=== PATIENT | female | born 1985 | race African-American/Black ===

== ENCOUNTER 2016-05-27 21:52 | Inpatient (IN) ==
[2016-05-27] MEDS ORDERED: MORPHINE 2 MG/1 ML SYRINGE IV STA (22:11)
[2016-05-27] MEDS ORDERED: SODIUM CHLORIDE 0.9% 500 ML IV STA (22:11)
[2016-05-27] MEDS ORDERED: ONDANSETRON 4 MG/2 ML VIAL IV STA (22:11)
[2016-05-27] MEDS ORDERED: ONDANSETRON 4 MG/2 ML VIAL ONE (22:44)
[2016-05-27] MEDS ORDERED: MORPHINE 2 MG/1 ML SYRINGE ONE (22:45)
[2016-05-27 22:49] LABS: Albumin 3.5 G/DL (3.4-5.0); Bilirubin,Total 1.3 MG/DL (0.2-1.0); Calcium 9.2 MG/DL (8.5-10.1); Osmolality,Calculated 284.7 MOS/KG (273-304); Potassium 3.7 MMOL/L (3.5-5.1); Total Protein 7.1 G/DL (6.4-8.3)
--- NOTE | 2016-05-27 22:54 | Ultrasound Report ---
Gallbladder ultrasound. Indication: Biliary colic. The liver is normal in size. No definite focal liver lesions. Echogenicities within the parenchyma appear to be associated with the portal triads. The gallbladder is filled with stones. There is gallbladder wall thickening at 6.5 mm. The patient is tender over the gallbladder. The pancreas and right kidney present a normal appearance. The common duct measures 7.4 mm, borderline dilated. Impression: Cholelithiasis and cholecystitis. Borderline prominence of the common bile duct. PROCEDURE INTERPRETED AT [facility] DEPARTMENT OF RADIOLOGY Final Report Signed by: Dr. Tamia Ventura
[2016-05-27 23:09] LABS: Basophils % 0.3 % (0.0-0.8); Eosinophils % 0.3 % (0.00-10.9); Hematocrit 40.3 VOL% (35.7-47.0); Hemoglobin 12.7 GM/DL (12.0-16.0); Immature Granulocytes % 0.2 %; Immature Granulocytes Absolute 0.01 #; Lymphocytes # 1.4 10*3/uL (1.4-4.0); Lymphocytes % 24.3 % (21.3-54.2); Mean Corpuscular HGB Conc 31.5 GM/DL (32-36); Mean Corpuscular Hemoglobin 26 PG (27-34); Mean Corpuscular Volume 83.8 FL (87-102); Mean Platelet Volume 11.2 FL (9.6-12.0); Monocytes # 0.7 10*3/uL (0.11-0.8); Monocytes % 12.1 % (1.7-12.7); Neutrophils # 3.6 10*3/uL (1.4-7.4); Neutrophils % 62.8 % (38.7-73.9); Platelet Count 278 T/CUMM (130-400); Red Blood Count 4.81 MC/CUMM (3.8-5.5); Red Cell Distribution Width 14.4 % (9.3-17.3); White Blood Count 5.7 T/CUMM (4-12)
[2016-05-27 23:31] LABS: Amorphous Crystals,Urine Occasional /HPF (Few); Apearance,Urine CLOUDY (Clear); Bilirubin,Urine Negative (Negative); Blood, Urine Negative (Negative); Glucose,Urine (UA) Negative (Negative); Ketones,Urine Negative (Negative); Nitrite,Urine Negative (Negative); Protein,Urine Negative; Squamous Epithelial Cell,Urine Occasional /HPF (0-10); Urine Color Yellow (Yellow); Urine Specific Gravity 1.011 (1.001-1.035)
[2016-05-27 23:35] LABS: Lactic Acid 0.6 MMOL/L (0.4-2.0)
[2016-05-27] MEDS ORDERED: DEXTROSE 5% LACTATED RINGERS 1,000 ML IV SCH (23:45)
[2016-05-27] MEDS ORDERED: MORPHINE 2 MG/1 ML SYRINGE IV PRN (23:53)
[2016-05-27] MEDS ORDERED: ONDANSETRON 4 MG/2 ML VIAL IV PRN (23:53)
[2016-05-27] MEDS ORDERED: ACETAMINOPHEN 325 MG TABLET PO PRN (23:53)
[2016-05-27] MEDS ORDERED: HYDROmorphone 2 MG/1 ML VIAL IV PRN (23:53)
--- NOTE | 2016-05-27 23:53 | Emergency Department Note ---
Kandace King Emily, am scribing for, and in the presence of, Hector Wilson MD 22: 13. Steve King Robert M, MD, personally performed the services described in this documentation, ascribed by Sara Jeronimo in my presence, and it is both accurate and complete 351 . Arrival - Arrival Chief Complaint: Abdominal / Flank Pain Stated Complaint: upper abd pain ED Nursing Triage Note: c/o epigastric ABD pain that she can feel in her right shoulder that started last night. last bm today and was normal. states she was nauseated earlier today. hx GERD. takes zantac. Mode of Arrival: Ambulatory Limitations: No Limitations Source: Patient - History of Present Illness HPI Narrative: Pt is a 30 y/o female who came to ED with c/o RUQ pain that started last night. Pt has associated sx of nausea but denies vomiting. She reports eating food makes her abdomen pain worse. Pt took Zantac with no relief. Pt's last nml BM was today. PMHx of HTN and GERD. Onset (ago): day(s) Consistency: constant Severity: mild, moderate Severity scale (1-10): 4 Quality: aching Date of Last Menstrual Period: "2 weeks ago" Allergies/Adverse Reactions: Allergies Allergy/AdvReac Type Severity Reaction Status Date / Time No Known Allergies Allergy Unverified 05/27/16 22:01 Home Medications: Home Medications Medication Instructions Recorded Confirmed Type Ranitidine Tab [Zantac Tab] 150 mg PO BID 05/27/16 05/27/16 History Triamterene/Hctz 37.5-25 Tab 1 tablet PO DAILY 05/27/16 05/27/16 History [Maxzide 37.5-25] amLODIPine [Norvasc] 10 mg PO DAILY 05/27/16 05/27/16 History buPROPion XL [Wellbutrin Xl] 300 mg PO DAILY 05/27/16 05/27/16 History Review of System - Review of System 12 point system: reviewed and no additional remarkable complaints except as stated - Review of System Constitutional: Absent: chills, fever Respiratory: Absent: cough, respiratory distress Cardiovascular: Absent: chest pain Gastrointestinal: Present: abdominal pain, nausea. Absent: vomiting, diarrhea, constipation Musculoskeletal: Absent: arm pain, back pain, leg pain, neck pain Skin: Absent: rash Neurological: Absent: headache Medical,Surgical,& Family Hx - Medical History Cardio: History of: Hypertension Gastrointestinal: History of: GERD - Family History Family History: Reports;: Family Cancer (maternal breast CA), Family Diabetes ( paternal), Family Hypertension (paternal, maternal), Family Stroke (paternal) - Social History Smoking Status: Never smoker Frequency of Alcohol Use: None Type of Drug Use: None Exam Vital Signs: Vital Signs Temperature 97.4 F L 05/27/16 21:55 Pulse Rate 79 05/27/16 21:55 Respiratory Rate 16 05/27/16 21:55 Blood Pressure 155/105 05/27/16 21:55 O2 Sat by Pulse Oximetry 99 05/27/16 21:55 - General General appearance: alert, in no apparent distress - Head Head exam: Present: atraumatic, normocephalic - Eye Eye exam: Present: PERRL, EOMI - ENT ENT exam: Present: mucous membranes moist. Absent: mucous membranes dry - Neck Neck exam: Present: full ROM. Absent: tenderness - Chest Chest inspection: Present: symmetric chest wall rise. Absent: tenderness - Respiratory Respiratory exam: Present: normal lung sounds bilaterally. Absent: respiratory distress - Cardiovascular Cardiovascular exam: Present: regular rate, normal rhythm, normal heart sounds - Abdominal Exam Abdominal exam: Present: soft, tenderness (RUQ). Absent: distention, guarding, rebound - Extremities Exam Extremities exam: Present: full ROM. Absent: tenderness, pedal edema - Back Exam Back exam: Present: full ROM. Absent: tenderness - Neurological Exam Neurological exam: Present: alert, oriented X3, CN II-XII intact. Absent: motor sensory deficit - Psychiatric Psychiatric exam: Present: normal affect, normal mood - Skin Skin exam: Present: warm, dry Course - Consultations Consultation #1: Dr. Grimes will admit the patient. Time: 23:52 Results - Labs CBC & BMP: 05/27/16 22:19 05/27/16 22:19 Lab Results: I have reviewed the patients labs - Diagnostic Findings Procedure: Ultrasound: report reviewed by me Disposition Clinical Impression: Cholecystitis Case discussed with: patient, patient's family Disposition: Still a Patient Condition: Stable Instructions: Cholecystitis (ED) Time of Disposition: 23:52
--- NOTE | 2016-05-28 09:37 | General Surg History&Physical ---
Assessment and Plan (1) Cholecystitis Status: Acute Assessment and plan: Impression: Epigastric and right upper quadrant abdominal pain, possible acute cholecystitis with choledocholithiasis Plan: Patient has improved. LFTs are elevated. Plan to repeat LFTs in the morning. Ultrasound shows stones in the gallbladder with gallbladder wall thickening consistent with cholecystitis. Common bile duct borderline dilated. Reassess after LFTs in the morning. Current Visit: Yes History of Present Illness Chief complaint: abdominal pain History of present illness: Ms. Colon is a 30 year old female with a 2 day history of epigastric and right upper quadrant abdominal pain. She's never had symptoms like this before. She's had some nausea no vomiting. She denies fever. She has no chest pain or shortness of breath. Since admission she feels better. Her pain has improved. Home Medications Medication Instructions Recorded Confirmed Type Ranitidine Tab [Zantac Tab] 150 mg PO BID 05/27/16 05/28/16 History Triamterene/Hctz 37.5-25 Tab 1 tablet PO DAILY 05/27/16 05/28/16 History [Maxzide 37.5-25] amLODIPine [Norvasc] 10 mg PO DAILY 05/27/16 05/28/16 History buPROPion XL [Wellbutrin Xl] 300 mg PO DAILY 05/27/16 05/28/16 History Multivitamin [Multivitamins] 1 each PO DAILY 05/28/16 05/28/16 History Allergies Allergy/AdvReac Type Severity Reaction Status Date / Time No Known Allergies Allergy Unverified 05/27/16 22:01 Medical,Surgical,& Family Hx - Medical History Cardio: History of: Hypertension Psychological: History of: Depression Gastrointestinal: History of: GERD - Surgical History Reproductive Surgeries: Surgical HX of;: Section (one) - Family History Family History: Reports;: Family Cancer (maternal breast CA), Family Diabetes ( paternal), Family Hypertension (paternal, maternal), Family Stroke (paternal) - Social History Smoking Status: Never smoker Frequency of Alcohol Use: None Type of Drug Use: None Exam - Constitutional Vitals: Period Temp Pulse Resp BP Sys/Engle Pulse Ox Last 24 Hr 97.6 F-97.9 F 59-77 18-20 113-146/53-84 97-97 General appearance: no acute distress - Head Head exam: Present: normocephalic - Neck Neck exam: Present: normal inspection - Respiratory Respiratory exam: Present: clear to auscultation bilaterally - Cardiovascular Cardiovascular exam: Present: RRR - GI/Abdominal GI/Abdominal exam: Present: soft (mildly tender in the epigastric and right upper quadrant.) - Neurological Exam Neurological exam: Present: alert, oriented X3 Speech: Present: normal - Skin Skin exam: Present: normal color 12 point system: reviewed and no additional remarkable complaints except as stated Results - Labs CBC & BMP: 05/27/16 22:19 05/27/16 22:19 Lab Results: I have reviewed the past 24 hour labs - Diagnostic Findings Procedure: Ultrasound: report reviewed by me
[2016-05-28] MEDS: PANTOPRAZOLE 40 MG TABLET PO SCH (09:51)
[2016-05-29 04:18] LABS: Basophils % 0.6 % (0.0-0.8); Eosinophils # 0.1 10*3/uL (0.0-0.87); Eosinophils % 1.1 % (0.00-10.9); Hematocrit 36.8 VOL% (35.7-47.0); Hemoglobin 11.5 GM/DL (12.0-16.0); Immature Granulocytes % 0.4 %; Immature Granulocytes Absolute 0.02 #; Lymphocytes # 1.9 10*3/uL (1.4-4.0); Lymphocytes % 34.9 % (21.3-54.2); Mean Corpuscular HGB Conc 31.3 GM/DL (32-36); Mean Corpuscular Hemoglobin 26 PG (27-34); Mean Corpuscular Volume 83.8 FL (87-102); Mean Platelet Volume 11.3 FL (9.6-12.0); Monocytes # 0.6 10*3/uL (0.11-0.8); Monocytes % 11.3 % (1.7-12.7); Neutrophils # 2.7 10*3/uL (1.4-7.4); Neutrophils % 51.7 % (38.7-73.9); Platelet Count 241 T/CUMM (130-400); Red Blood Count 4.39 MC/CUMM (3.8-5.5); Red Cell Distribution Width 14.6 % (9.3-17.3); White Blood Count 5.3 T/CUMM (4-12)
[2016-05-29 04:44] LABS: Albumin 2.9 G/DL (3.4-5.0); Bilirubin,Direct 0.2 MG/DL (0.0-0.20); Bilirubin,Indirect 0.6 MG/DL (0.0-1.0); Bilirubin,Total 0.8 MG/DL (0.2-1.0); Calcium 8.4 MG/DL (8.5-10.1); Osmolality,Calculated 283.8 MOS/KG (273-304); Potassium 3.8 MMOL/L (3.5-5.1); Total Protein 5.9 G/DL (6.4-8.3)
[2016-05-29 05:46] LABS: Hepatitis A Ab IgM Quant 0.15 Index; Hepatitis A Ab IgM Result Negative (Negative); Hepatitis B Core IgM Quant 0.16 Index; Hepatitis B Core IgM Result Negative (Negative); Hepatitis B Surface Ag Quant 0.29 Index; Hepatitis B Surface Ag Result Negative (Negative); Hepatitis C Virus Ab Quant 0.13 Index; Hepatitis C Virus Ab Result Negative (Negative)
--- NOTE | 2016-05-29 09:40 | Nuclear Medicine Report ---
NM hepatobiliary Indication: Right upper quadrant abdominal pain. HIDA scan Technique: Following the IV administration of 5.0 mCi technetium 99 labeled Choletec, planar imaging of the liver was performed. Findings: There is nonfilling of the gallbladder up to 1 hour 30 minutes. At 1 hour 35 minutes, faint gallbladder activity begins to develop although most of the radiotracer has passed from the liver to the small bowel. At 2 hours, almost the entire radiotracer is in small bowel with only a faint wisp of contrast in the gallbladder region. Impression: Extremely delayed and limited filling of the gallbladder, indicating cystic duct obstruction or cholecystitis. PROCEDURE INTERPRETED AT [facility] DEPARTMENT OF RADIOLOGY Final Report Signed by: Jose Carlos Lobo M.D.
--- NOTE | 2016-05-29 10:44 | General Surgery Progress Note ---
Assessment and Plan (1) Cholecystitis Status: Acute Assessment and plan: Impression: Epigastric and right upper quadrant abdominal pain, possible acute cholecystitis with choledocholithiasis Plan: LFTs improving. HIDA scan noted. Consistent with acute cholecystitis. Remains a possibility of choledocholithiasis. Hepatitis panel was negative. I discussed options with the patient and she would like to proceed with cholecystectomy. We'll plan for cholangiogram at the time to evaluate the common duct. Discussed the possibility of postoperative ERCP if needed. We discussed the procedure in house performed and anticipated recovery. Risk of the procedure including bleeding, infection, damage to surrounding structures including the biliary tree, need for further surgery were all discussed in detail and she would like to proceed today. Current Visit: Yes Subjective Patient reports: Present: no new complaints, feels better Narrative: Patient is feeling better. Pain is improved but still present. No nausea or vomiting. Exam - Constitutional Vitals: Period Temp Pulse Resp BP Sys/Engle Pulse Ox Last 24 Hr 97.1 F-99.4 F 70-87 18-20 111-132/73-89 97-100 General appearance: no acute distress - Head Head exam: Present: normocephalic - Respiratory Respiratory exam: Present: clear to auscultation bilaterally - GI/Abdominal GI/Abdominal exam: Present: soft (moderate tenderness to palpation in the right upper quadrant, nondistended) - Extremities Exam Extremities exam: Present: normal inspection - Back Exam Back exam: Present: normal inspection - Neurological Exam Neurological exam: Present: alert, oriented X3 Speech: Present: normal - Skin Skin exam: Present: normal color Results - Labs CBC & BMP: 05/29/16 03:12 05/29/16 03:12 Lab Results: I have reviewed the past 24 hour labs Specialty Discharge - Follow Up or Referrals
[2016-05-29] MEDS: PANTOPRAZOLE 40 MG TABLET PO SCH (11:24)
[2016-05-29] MEDS ORDERED: LIDOCAINE 2%/EPI 20 ML VIAL ONE (12:10)
[2016-05-29] MEDS ORDERED: TISSUE ADHESIVE 1 EACH APPLICATOR TOP ONE (12:10)
[2016-05-29] MEDS ORDERED: BUPIVACAINE MPF 0.25% /EPI 30 ML VIAL ONE (12:10)
[2016-05-29] MEDS ORDERED: SUCCINYLCHOLINE 200 MG/10 ML VIAL ONE (12:38)
[2016-05-29] MEDS ORDERED: LIDOCAINE 2% 5 ML VIAL ONE (12:38)
[2016-05-29] MEDS ORDERED: NEOSTIGMINE 10 MG/10 ML VIAL ONE (12:38)
[2016-05-29] MEDS ORDERED: ONDANSETRON 4 MG/2 ML VIAL ONE (12:38)
[2016-05-29] MEDS ORDERED: ROCURONIUM 100 MG/10 ML VIAL IV ONE (12:38)
[2016-05-29] MEDS ORDERED: GLYCOPYRROLATE 0.4 MG/2 ML VIAL ONE (12:38)
[2016-05-29] MEDS ORDERED: PROPOFOL 200 MG/20 ML VIAL IV ONE (12:38)
--- NOTE | 2016-05-29 13:36 | Physician Query Form ---
CLICK EDIT DOCUMENT TO SELECT QUERY ANSWER --> OK --> SIGN Liz Dumont RN Clinical Aircraft Designer W) [phone] (f) [phone] [email or web address] PROVIDERS: Make your selection(s) from the choices in EACH section by typing an "x" and enter comments in the comment section. Please use your independent medical judgment in providing your response. This request does not imply that any particular answer is desired or expected. 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[employer] BMI: 41.5 Magistrate Notes: Class 3 obesity If applicable, please provide an associated diagnosis related to the abnormal BMI: BMI of 40 or greater: ( ) Overweight ( ) Obesity (x ) Morbid//Severe Obesity ( ) Obesity with Alveolar Hypoventilation ( ) Weight Gain ( ) BMI is not significant ( ) Other, please specify: ( ) Clinically unable to determine COMMENTS: Use of terms such as suspected, likely, or probable (associated with a specific diagnosis that is being evaluated, monitored, or treated as if it exists) are acceptable and can be restated in the discharge summary if not ruled out. [facility]
[2016-05-29] MEDS ORDERED: SEVOFLURANE 1 UNIT/15 MINUTE INH ONE (14:08)
[2016-05-29] MEDS ORDERED: MIDAZOLAM 2 MG/2 ML VIAL ONE (14:09)
[2016-05-29] MEDS ORDERED: fentaNYL 100 MCG/2 ML VIAL ONE (14:09)
[2016-05-29] MEDS ORDERED: ONDANSETRON 4 MG/2 ML VIAL IV PRN (14:29)
[2016-05-29] MEDS ORDERED: HYDROmorphone 2 MG/1 ML VIAL IV PRN (14:29)
--- NOTE | 2016-05-29 14:37 | Operative Note ---
Date of procedure: 05/29/16 Pre-op diagnosis: acute cholecystitis Post-op diagnosis: same Procedure: Procedure performed: Laparoscopic cholecystectomy with intraoperative cholangiogram #2 supervision and interpretation of fluoroscopy Procedure in detail: After informed consent was obtained, the patient was taken operating suite and laid supine on the operating table. After general anesthesia was induced the abdomen was prepped and draped in usual sterile fashion. After procedural pause local anesthetic and straighten the skin and subcutaneous tissue just above the umbilicus. Incision was made and dissection carried down through skin and soft tissue. The fascia was identified and grasped with Gavin's and elevated. Fascial incision was made and the abdominal cavity was entered bluntly. Finger sweep revealed no adhesions. Donovan trocar was placed under direct visualization. Pneumoperitoneum achieved. Camera was inserted and bowel mesentery inspected and found be free of any violation. Next the patient was placed in reverse Trendelenburg position and rotated to the left. 25 mm trochars were placed in right upper quadrant 11 mm subxiphoid trocar was placed all under visualization. The gallbladder was identified it was edematous and acutely inflamed. It was grasped and retracted superiorly. Infundibulum of the gallbladder retracted toward the right hip. Dissection was carried out from a lateral to medial approach and the triangle of [place]. Cystic duct and cystic artery were identified and isolated. Using a critical view technique these were the only 2 structures entering the gallbladder. A clip was placed the junction of the cystic duct and neck of the gallbladder and partial transection made on the cystic duct. Clinda catheter inserted secured in place. Intraoperative glandular and performed. There were multiple small filling defects identified in the common bile duct. I could not tell if these appeared to be stones or air bubbles. There appeared to change shape at one point but did not coalesce. I flushed the duct with saline and repeated the cholangiogram. On final cholangiogram I do not see any filling defects but visualization was limited due to all the dye within the small bowel. Nonetheless these were nonobstructing layer with a were. The cholangiocatheter was removed and 2 clips were placed in the cystic duct just distal to the partial transection and the transection completed. Cystic artery was triple clipped and transected and gallbladder removed from the gallbladder fossa using hook cautery and placed in an Endo Catch sac. Was removed through the Donovan trocar site. Pneumoperitoneum reachieved and the right upper quadrant thoroughly irrigated and suction. The irrigant remained clear. There was excellent hemostasis. The clips inspected found be intact no leakage of bilious or sanguinous fluid. The trochars were removed as the abdomen was desufflated. Fascia at the Donovan trocar site closed using 0 Vicryl figure-of- eight interrupted suture. Wounds were irrigated and suction skin closed with jazmin. Sterile dressings applied. The patient was extubated and taken recovery in stable condition. All lap and needle counts correct at the end of the case. We'll follow up to final read of the cholangiogram to determine if gastroenterology should be consult did. Anesthesia: SONJAA Surgeon / Physician: Saud Singh Estimated blood loss: other (less than 10 mL) Specimens: other (gallbladder) Condition: stable Disposition: PACU Results - Labs CBC & BMP: 05/29/16 03:12 05/29/16 03:12 Discharge Plan - Discharge Medications No Action buPROPion XL [Wellbutrin Xl] 300 mg PO DAILY Multivitamin [Multivitamins] 1 each PO DAILY amLODIPine [Norvasc] 10 mg PO DAILY Triamterene/Hctz 37.5-25 Tab [Maxzide 37.5-25] 1 tablet PO DAILY Ranitidine Tab [Zantac Tab] 150 mg PO BID - Follow Up or Referral - Forms/Instructions Instructions: Cholecystitis (ED)
--- NOTE | 2016-05-29 15:09 | Fluoroscopy Report ---
FL cholangiogram in surgery Indication: Cholecystectomy. Intraoperative cholangiogram: Fluoroscopy time 96 seconds. 52 images captured. Sequential images show injection of the cystic duct remnant. There is an ovoid filling defect in the common bile duct that appears to move somewhat and may represent a bubble. Only one series of images were obtained. There is no intrahepatic duct dilatation and the common hepatic duct is normal in size. Contrast spills into the duodenum rapidly. Impression: Presumed bubble in the common bile duct. No biliary obstruction. PROCEDURE INTERPRETED AT [facility] DEPARTMENT OF RADIOLOGY Final Report Signed by: Jose Carlos Lobo M.D.
--- NOTE | 2016-05-29 19:45 | Anesthesia ---
Anesthesia Post OP - Post Ansesthetic Evaluation Patient seen in post op: Yes Resp: within normal limits CV: within normal limits Mental: within normal limits Temp: within normal limits [id number]: within normal limits Nausea and Vomiting: within normal limits Pain: within normal limits
[2016-05-30 04:38] LABS: Calcium 8.3 MG/DL (8.5-10.1); Potassium 4.2 MMOL/L (3.5-5.1)
[2016-05-30 05:02] LABS: Albumin 2.8 G/DL (3.4-5.0); Bilirubin,Direct 0.1 MG/DL (0.0-0.20); Bilirubin,Indirect 0.8 MG/DL (0.0-1.0); Bilirubin,Total 0.9 MG/DL (0.2-1.0)
[2016-05-30] MEDS: PANTOPRAZOLE 40 MG TABLET PO SCH (08:00)
--- NOTE | 2016-05-30 08:33 | Discharge Summary ---
Hospital Course - Hospital Course Hospital Course: Status post laparoscopic cholecystectomy. Intraoperative cholangiogram read as probable air bubble. Her LFTs continue to improve. Patient has done well overnight with out requiring any significant pain medicine. She just now asked for a pain pill. She is doing well she is tolerated a diet and she wants to go home. On exam her abdomen is soft and appropriately tender and nondistended. The incisions look good. I have discussed the intraoperative cholangiogram results with her. She understands we cannot absolutely rule out a common bile duct stone. At this point I think it's unlikely that there is a remaining stone but she was instructed of that possibility and to call me for any vomiting nausea worsening abdominal pain or any yellowing of the skin or eyes. I'll see her back in 2 weeks. Discharge in structure and were given. [place] Rx given. Diagnosis - Discharge Diagnosis (1) Cholecystitis Status: Acute Specialty Discharge - Follow Up or Referrals Follow up with: Saud Signh MD [Physician] - Discharge Plan - Discharge Medications No Action buPROPion XL [Wellbutrin Xl] 300 mg PO DAILY Multivitamin [Multivitamins] 1 each PO DAILY amLODIPine [Norvasc] 10 mg PO DAILY Triamterene/Hctz 37.5-25 Tab [Maxzide 37.5-25] 1 tablet PO DAILY Ranitidine Tab [Zantac Tab] 150 mg PO BID - Follow Up or Referral Follow Up: Saud Singh MD [Physician] - - Forms/Instructions Instructions: Cholecystitis (ED), Laparoscopic Cholecystectomy (DC) Exam - Constitutional Vitals: Period Temp Pulse Resp BP Sys/Engle Pulse Ox Last 24 Hr 97.1 F-99.6 F 50-99 14-18 124-172/71-104 96-100 Discharge Results Labs on day of discharge: Labs from last 24 hours 05/30/16 05/30/16 05/29/16 02:35 02:35 Unknown Sodium 143 Potassium 4.2 Chloride 110 H Carbon Dioxide 23 Anion Gap 14.2 BUN 10 Creatinine 1.00 GFR Calculation 111 BUN/Creatinine Ratio 10.00 Glucose 144 H Calculated Osmolality 286.0 Calcium 8.3 L Total Bilirubin 0.90 Direct Bilirubin 0.1 Indirect Bilirubin 0.8 AST 92 H ALT 342 H Alkaline Phosphatase 123 H Total Protein 6.0 L Albumin 2.8 L Urine Test Negative DS: Provider Date of admission: 05/27/16 23:53 Primary care physician: Jeremy Parra Attending physician on admission: Saud Singh MD Discharging clinician: Saud Singh MD
--- NOTE | 2016-05-30 08:34 | Discharge Summary ---
Diagnosis - Discharge Diagnosis (1) Cholecystitis Status: Acute Specialty Discharge - Follow Up or Referrals Follow up with: Saud Singh MD [Physician] - Discharge Plan - Discharge Medications New HYDROcodone/ACETAMIN 7.5-325 [[place] 7.5-325] 1 tablet PO Q4H PRN #40 tablet PRN Reason: Pain Moderate (4-7) Continue buPROPion XL [Wellbutrin Xl] 300 mg PO DAILY Multivitamin [Multivitamins] 1 each PO DAILY amLODIPine [Norvasc] 10 mg PO DAILY Triamterene/Hctz 37.5-25 Tab [Maxzide 37.5-25] 1 tablet PO DAILY Ranitidine Tab [Zantac Tab] 150 mg PO BID - Follow Up or Referral Follow Up: Saud Singh MD [Physician] - - Forms/Instructions Instructions: Cholecystitis (ED), Laparoscopic Cholecystectomy (DC) Exam - Constitutional Vitals: Period Temp Pulse Resp BP Sys/Engle Pulse Ox Last 24 Hr 97.1 F-99.6 F 50-99 14-18 124-172/71-104 96-100 Discharge Results Labs on day of discharge: Labs from last 24 hours 05/30/16 05/30/16 05/29/16 02:35 02:35 Unknown Sodium 143 Potassium 4.2 Chloride 110 H Carbon Dioxide 23 Anion Gap 14.2 BUN 10 Creatinine 1.00 GFR Calculation 111 BUN/Creatinine Ratio 10.00 Glucose 144 H Calculated Osmolality 286.0 Calcium 8.3 L Total Bilirubin 0.90 Direct Bilirubin 0.1 Indirect Bilirubin 0.8 AST 92 H ALT 342 H Alkaline Phosphatase 123 H Total Protein 6.0 L Albumin 2.8 L Urine Test Negative DS: Provider Date of admission: 05/27/16 23:53 Primary care physician: Jeremy Parra Attending physician on admission: Saud Singh MD Discharging clinician: Saud Singh MD
--- NOTE | 2016-05-30 11:55 | Pathology Report from [facility] ---
ACCESSION # : [id number] PATIENT NAME : Cecille Briceno ORDERING DR : Saud Singh MD CLINICAL HX: Acute cholecystitis w/choledocholethiasis POST-OP DX: Same SPECIMEN INFO: Gallbladder GROSS DESCRIPTION: The specimen is received in formalin labeled with the patient 's name and consists of an intact gallbladder measuring 9.5 x 3.8 cm. The serosa is smooth and yellow-red. The wall averages 0.3 cm in thickness. The mucosal surface is granular and red tinged. The lumen is filled with yellow- brown bile with multiple yellow-barragan stones noted measuring up to 1.9 cm. Network Engineer Administrator sections submitted in one cassette. DIAGNOSIS FOR CECILLE BRICENO: GALLBLADDER, CHOLECYSTECTOMY: Acute and chronic cholecystitis; cholelithiasis. SERVICE DATE: 05/29/2016 REPORT DATE: 05/30/2016 PATHOLOGIST: Lazaro Mcdermott
[2016-05-30 12:39] VITALS: BP 134/81
--- NOTE | 2016-06-01 11:24 | Physician Query Form ---
CLICK EDIT DOCUMENT TO SELECT QUERY ANSWER --> OK --> SIGN Liz Dumont RN Clinical Cement Rubber W) [phone] (f) [phone] [email or web address] PROVIDERS: Make your selection(s) from the choices in EACH section by typing an "x" and enter comments in the comment section. Please use your independent medical judgment in providing your response. This request does not imply that any particular answer is desired or expected. CLINICAL INDICATORS: (Providers should not edit this section) Pt. admitted with acute cholecystitis. Pathology report states "acute and chronic cholecystitis; cholelithiasis". Please clarify if you agree with the pathology report findings. Based on the above, could you clarify the appropriate diagnosis, if significant , that supports the above abnormalities and additional evaluation, monitoring, and/or treatment rendered: ( ) I agree with the pathology report diagnosis of acute and chronic cholecystitis; cholelithiasis ( ) I do not agree with the pathology report diagnosis of acute and chronic cholecystitis; cholelithiasis ( ) Other, please specify: ( ) Clinically unable to determine COMMENTS: Use of terms such as suspected, likely, or probable (associated with a specific diagnosis that is being evaluated, monitored, or treated as if it exists) are acceptable and can be restated in the discharge summary if not ruled out. [facility]
--- NOTE | 2016-06-05 08:39 | Physician Query Form ---
CLICK EDIT DOCUMENT TO SELECT QUERY ANSWER --> OK --> SIGN Liz Dumont RN Clinical Wire Frame Maker W) [phone] (f) [phone] [email or web address]: Make your selection(s) from the choices in EACH section by typing an "x" and enter comments in the comment section. Please use your independent medical judgment in providing your response. This request does not imply that any particular answer is desired or expected. CLINICAL INDICATORS: (Providers should not edit this section) Pathology Findings: acute and chronic cholecystitis; cholelithiasis Abnormal Pathology findings are not reported unless an authorized provider indicates their clinical significance Please select the best choice: ( ) I agree with the Pathology findings ( ) I disagree with the Pathology findings ( ) No clinical significance ( ) Other/clarification of findings, please specify: ( ) Clinically unable to determine COMMENTS: Use of terms such as suspected, likely, or probable (associated with a specific diagnosis that is being evaluated, monitored, or treated as if it exists) are acceptable and can be restated in the discharge summary if not ruled out. [facility]
--- NOTE | 2016-06-06 08:06 | Physician Query Form ---
CLICK EDIT DOCUMENT TO SELECT QUERY ANSWER --> OK --> SIGN Liz Dumont RN Clinical Sewing Machine Maintenance Mechanic W) [phone] (f) [phone] [email or web address]: Make your selection(s) from the choices in EACH section by typing an "x" and enter comments in the comment section. Please use your independent medical judgment in providing your response. This request does not imply that any particular answer is desired or expected. CLINICAL INDICATORS: (Providers should not edit this section) Pathology Findings: acute and chronic cholecystitis; cholelithiasis Abnormal Pathology findings are not reported unless an authorized provider indicates their clinical significance Please select the best choice: ( ) I agree with the Pathology findings ( ) I disagree with the Pathology findings ( ) No clinical significance ( ) Other/clarification of findings, please specify: ( ) Clinically unable to determine COMMENTS: Use of terms such as suspected, likely, or probable (associated with a specific diagnosis that is being evaluated, monitored, or treated as if it exists) are acceptable and can be restated in the discharge summary if not ruled out. [facility]
--- NOTE | 2016-06-07 13:16 | Physician Query Form ---
CLICK EDIT DOCUMENT TO SELECT QUERY ANSWER --> OK --> SIGN Liz Dumont RN Clinical Balancing Machine Set Up Worker W) [phone] (f) [phone] [email or web address]: Make your selection(s) from the choices in EACH section by typing an "x" and enter comments in the comment section. Please use your independent medical judgment in providing your response. This request does not imply that any particular answer is desired or expected. CLINICAL INDICATORS: (Providers should not edit this section) Pathology Findings: acute and chronic cholecystitis; cholelithiasis. Abnormal Pathology findings are not reported unless an authorized provider indicates their clinical significance Please select the best choice: ( ) I agree with the Pathology findings ( ) I disagree with the Pathology findings ( ) No clinical significance ( ) Other/clarification of findings, please specify: ( ) Clinically unable to determine COMMENTS: Use of terms such as suspected, likely, or probable (associated with a specific diagnosis that is being evaluated, monitored, or treated as if it exists) are acceptable and can be restated in the discharge summary if not ruled out. [facility]
== END 2016-05-30 13:30 | disposition home or self-care (01) | DRG 418 ==
LOC: N.ED 21:52 → N.EDINP 23:53 → N.3E 05-28 00:48
PROVIDERS: ADMIT Surgery; ATTEND Surgery
PROC: LAPCHOL (2016-05-29 13:20)